=== PATIENT | female | born 1990 | race Caucasian/White ===

== ENCOUNTER 2017-07-31 14:27 | Emergency (ER) | payer MEDICAID ==
[~2017-07-31] VITALS: Ht 170.2 cm; Wt 112.0 kg
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
--- NOTE | 2017-07-31 15:06 | NUR ---
DR MORGAN AT BEDSIDE FOR EVAL.
--- NOTE | 2017-07-31 15:17 | NUR ---
INSTRUMENT ROOM TECHNICIAN AT BEDSIDE FOR BLOOD DRAW.
[2017-07-31 15:21] LABS: BASOPHILS # (AUTO) 0.1 /CMM (0.0-0.2); BASOPHILS % (AUTO) 1.3 % (0.0-2.0); EOSINOPHILS % (AUTO) 0.5 % (0.0-6.0); HEMATOCRIT 39 % (33-45); HEMOGLOBIN 13.6 g/dL (11.5-14.8); LYMPHOCYTES # (AUTO) 1.1 /CMM (0.8-4.8); LYMPHOCYTES % (AUTO) 12.2 % (20.0-44.0); MEAN CORPUSCULAR HGB CONC 35 g/dl (31.0-36.0); MEAN CORPUSCULAR VOLUME 91 fL (82-100); MONOCYTES # (AUTO) 0.2 /CMM (0.1-1.30); MONOCYTES % (AUTO) 2.5 % (2.0-12.0); NEUTROPHILS # (AUTO) 7.7 /CMM (1.8-8.9); NEUTROPHILS % (AUTO) 83.5 % (43.0-81.0); PLATELET COUNT (AUTO) 209 /CMM (150-450); RDW COEFFICIENT OF VARIATION 12.7 (11.5-15.0); RED BLOOD CELL COUNT(AUTO) 4.29 MIL/uL (4.0-5.2); WHITE BLOOD COUNT (AUTO) 9.1 K/uL (4.3-11.0)
[2017-07-31] MEDS ORDERED: IV NS 0.9% 1,000 ML BAG IV ONE ×2 (15:30→16:30)
[2017-07-31 15:44] LABS: CALCIUM, SERUM 8.1 mg/dL (8.5-10.1); CREATININE 0.7 mg/dL (0.6-1.3); POTASSIUM 3.9 mmol/L (3.5-5.1)
[2017-07-31 15:50] LABS: ALBUMIN 3.4 g/dL (3.4-5.0); BILIRUBIN,DIRECT 0.1 mg/dL (0.0-0.2); BILIRUBIN,TOTAL 0.2 mg/dL (0.2-1.0); TOTAL PROTEIN, SERUM 6.8 g/dL (6.4-8.2)
[2017-07-31 16:12] LABS: APPEARANCE,URINE CLEAR (CLEAR); BILIRUBIN,URINE NEGATIVE (NEGATIVE); BLOOD, URINE 3+ Ery/uL (NEGATIVE); COLOR,URINE YELLOW (YELLOW); KETONES,URINE NEGATIVE (NEGATIVE); LEUKOCYTE ESTERASE ,URINE NEGATIVE (NEGATIVE); NITRITE, URINE NEGATIVE (NEGATIVE); PROTEIN,URINE NEGATIVE (NEGATIVE); UGLUCOSE NEGATIVE (NEGATIVE); UROBILINOGEN,URINE 0.2 EU/dL (0.2)
[2017-07-31 16:39] LABS: BACTERIA,URINE Rare /HPF (None Seen); RBC,URINE 51-80 /HPF (0-2); SQUAMOUS EPITHELIAL CELL,UR Few /HPF (None Seen)
--- NOTE | 2017-07-31 18:39 | NUR ---
Patient discharged to home in stable condition. Written and verbal after care instructions given. Patient verbalizes understanding of instruction.IV removed. Catheter intact and site benign. Pressure and 4x4 applied to site. No bleeding noted.
[2017-07-31 18:40] VITALS: BP 115/68
== END 2017-07-31 18:40 | disposition home or self-care (01) ==
LOC: ER 14:29
DX: N94.6 Dysmenorrhea, unspecified (principal); E86.0 Dehydration; F12.10 Cannabis abuse, uncomplicated
CPT/HCPCS: 36415; 80048-TC; 80076-TC; 81000-TC; 84703-TC; 85025-TC; 87086-TC; A4606; J7030; Z7610

== ENCOUNTER 2017-09-05 09:26 | Emergency (ER) | payer SELFPAY ==
[~2017-09-05] VITALS: Ht 170.2 cm; Wt 97.5 kg
[2017-09-05 09:30] VITALS: BP 122/76
[2017-09-05] MEDS ORDERED: AMOX/CLAVULANATE 875 MG TABLET ONE (10:11)
[2017-09-05] MEDS ORDERED: AMOX/CLAVULANATE 875 MG TABLET PO ONE (10:30)
== END 2017-09-05 10:18 | disposition home or self-care (01) ==
LOC: ER 09:28
DX: J03.90 Acute tonsillitis, unspecified (principal); F12.10 Cannabis abuse, uncomplicated
CPT/HCPCS: 99283; A4606; Z7610

== ENCOUNTER 2021-03-13 19:36 | Emergency (ER) | payer SELFPAY ==
[~2021-03-13] VITALS: Ht 170.2 cm; Wt 104.3 kg
[2021-03-13 20:11] VITALS: BP 110/81
[2021-03-13] MEDS ORDERED: DOCUSATE SODIUM LIQ 100 MG/10 ML UDC ONE (20:15)
[2021-03-13] MEDS ORDERED: CARB15DR12 EACH EAR (20:19)
[2021-03-13] MEDS ORDERED: NEOM10SO7 EACH EAR (20:19)
[2021-03-13] MEDS ORDERED: OFLO5DRO5 EACH EAR (21:12)
[2021-03-13] MEDS: DOCUSATE SODIUM LIQ 100 MG/10 ML UDC NG ONE (21:15)
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
[2021-03-13] MEDS ORDERED: TRAM50TA2 PO (22:09)
== END 2021-03-13 22:16 | disposition home or self-care (01) ==
LOC: ER 19:45
DX: H61.23 Impacted cerumen, bilateral (principal); F17.200 Nicotine dependence, unspecified, uncomplicated; Z60.2 Problems related to living alone; Z79.899 Other long term (current) drug therapy

== ENCOUNTER 2021-11-05 10:12 | Emergency (ER) | payer SELFPAY ==
[~2021-11-05] VITALS: Ht 170.2 cm; Wt 95.3 kg
[~2021-11-05 10:12] MED LIST: CARB15DR12 EACH EAR; OFLO5DRO5 EACH EAR; TRAM50TA2 PO
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
[2021-11-05] MEDS ORDERED: ACETAMINOPHEN 325 MG TABLET ONE (10:40)
--- NOTE | 2021-11-05 10:46 | NUR ---
WAIVER SIGNED AND PLACED IN PT'S CHART
--- NOTE | 2021-11-05 10:46 | NUR ---
X RAY AT BEDSIDE
[2021-11-05] MEDS ORDERED: ACETAMINOPHEN 325 MG TABLET PO ONE (11:00)
[2021-11-05] MEDS ORDERED: CYCL5TAB PO (11:05)
[2021-11-05] MEDS ORDERED: IBUP-1955 PO (11:05)
[2021-11-05] MEDS ORDERED: KETOROLAC TROMETHAMINE INJ 30 MG/ML VIAL IM ONE (11:30)
[2021-11-05] MEDS ORDERED: TDAP [DIPH/PERTUSSIS/TET] 0.5 ML VIAL IM ONE ×2 (11:30→11:37)
[2021-11-05] MEDS ORDERED: BACI/NEOM/POLY B OINT PKT 1 UDPKT PACKET TP ONE (11:30)
[2021-11-05] MEDS ORDERED: KETOROLAC TROMETHAMINE 15 MG/ML VIAL ONE (11:37)
--- NOTE | 2021-11-05 11:40 | NUR ---
Patient discharged to home in stable condition. Written and verbal after care instructions given. Patient verbalizes understanding of instruction.
[2021-11-05 11:44] VITALS: BP 115/84
== END 2021-11-05 11:44 | disposition home or self-care (01) ==
LOC: ER 10:28
DX: S16.1XXA Strain of muscle, fascia and tendon at neck level, initial encounter (principal); S60.222A Contusion of left hand, initial encounter; Z60.2 Problems related to living alone; Z79.899 Other long term (current) drug therapy; V89.2XXA Person injured in unspecified motor-vehicle accident, traffic, initial encounter; Y93.89 Activity, other specified; Y92.411 Interstate highway as the place of occurrence of the external cause; Y99.8 Other external cause status
CPT/HCPCS: 71045; 73130; 90471; 90715; 96372; 99284; J1885

== ENCOUNTER 2022-03-09 22:58 | Emergency (ER) | payer SELFPAY ==
[~2022-03-09 22:58] MED LIST changes: +CYCL5TAB PO; +IBUP-1955 PO
--- NOTE | 2022-03-10 00:55 | NUR ---
CALLED TO TRIAGE NO ANSWER
--- NOTE | 2022-03-10 01:05 | NUR ---
PATIENT NO LONGER IN WAITING ROOM
== END 2022-03-10 01:19 | disposition left against medical advice (07) ==
LOC: ER 23:00
DX: Z53.21 Procedure and treatment not carried out due to patient leaving prior to being seen by health care provider (principal)

== ENCOUNTER 2024-01-28 21:26 | Emergency (ER) | payer SELFPAY ==
[~2024-01-28] VITALS: Ht 170.2 cm; Wt 80.3 kg
[2024-01-28] MEDS ORDERED: CARBAMIDE PEROXIDE OTIC 15 ML BOTTLE ONE (22:53)
[2024-01-28] MEDS: CARBAMIDE PEROXIDE OTIC 15 ML BOTTLE OT ONE (23:00)
[2024-01-29] MEDS ORDERED: [UNRECOGNIZED DRUG - CODE] EACH EAR (00:04)
[2024-01-29] MEDS ORDERED: AZIT500T4 PO (00:04)
[2024-01-29] MEDS ORDERED: FLUT16SP16 BNOSTRILS (00:04)
[2024-01-29] MEDS ORDERED: CIPR7.5D9 EACH EAR (00:07)
[2024-01-29 00:18] VITALS: BP 130/84; TEMP 98.4; O2SAT 100
== END 2024-01-29 00:19 | disposition home or self-care (01) ==
LOC: ER 21:29
DX: H61.23 Impacted cerumen, bilateral (principal); J32.9 Chronic sinusitis, unspecified; Z60.2 Problems related to living alone